=== PATIENT | female | born 1965 | race Caucasian/White ===

== ENCOUNTER 2017-10-07 20:26 | Emergency (ER) | payer MEDICAID ==
[~2017-10-07] VITALS: Ht 160 cm; Wt 57.5 kg
[2017-10-07 20:56] VITALS: BP 136/81
== END 2017-10-07 23:28 | disposition left against medical advice (07) ==
LOC: ER 20:26 → EEVIPCON 20:26 → ER 23:28
DX: R10.2 Pelvic and perineal pain (principal); Z53.21 Procedure and treatment not carried out due to patient leaving prior to being seen by health care provider

== ENCOUNTER 2017-10-09 12:53 | Emergency (ER) | payer MEDICAID ==
[~2017-10-09] VITALS: Ht 160 cm; Wt 63.0 kg
[2017-10-09 13:15] VITALS: BP 129/86
[2017-10-09] MEDS ORDERED: PERM60CR19 TP (13:32)
== END 2017-10-09 14:24 | disposition home or self-care (01) ==
LOC: ER 12:53
DX: L98.9 Disorder of the skin and subcutaneous tissue, unspecified (principal); F17.200 Nicotine dependence, unspecified, uncomplicated; F12.10 Cannabis abuse, uncomplicated
CPT/HCPCS: 99282

== ENCOUNTER 2018-01-02 14:54 | Emergency (ER) | payer MEDICAID ==
[~2018-01-02] VITALS: Ht 160 cm; Wt 67.3 kg
[2018-01-02 14:56] VITALS: BP 148/81
== END 2018-01-02 15:52 | disposition home or self-care (01) ==
LOC: ER 14:55
DX: L98.8 Other specified disorders of the skin and subcutaneous tissue (principal); F12.90 Cannabis use, unspecified, uncomplicated; F17.200 Nicotine dependence, unspecified, uncomplicated
CPT/HCPCS: 99281

== ENCOUNTER 2018-08-05 12:08 | Emergency (ER) | payer MEDICAID ==
[~2018-08-05] VITALS: Ht 160 cm; Wt 59.1 kg
[2018-08-05 12:20] VITALS: BP 157/90
[2018-08-05] MEDS ORDERED: KEN0.1O TP (12:24)
[2018-08-05] MEDS ORDERED: PERM60CR19 TP (12:24)
== END 2018-08-05 12:38 | disposition home or self-care (01) ==
LOC: ER 12:09
DX: B86 Scabies (principal); F12.90 Cannabis use, unspecified, uncomplicated; Z79.899 Other long term (current) drug therapy
CPT/HCPCS: 99283

== ENCOUNTER 2018-10-07 23:04 | Emergency (ER) | payer MEDICAID ==
[~2018-10-07] VITALS: Ht 160 cm; Wt 51.9 kg
[~2018-10-07 23:04] MED LIST: PERM60CR19 TP
[2018-10-08 04:13] VITALS: BP 138/78
[2018-10-08] MEDS ORDERED: CIPR10DR LEFT EAR (04:52)
== END 2018-10-08 05:04 | disposition home or self-care (01) ==
LOC: ER 23:04
DX: J06.9 Acute upper respiratory infection, unspecified (principal); H60.92 Unspecified otitis externa, left ear; F12.90 Cannabis use, unspecified, uncomplicated; Z79.899 Other long term (current) drug therapy
CPT/HCPCS: 99283

== ENCOUNTER 2019-08-13 15:12 | Emergency (ER) | payer MEDICAID ==
[~2019-08-13] VITALS: Ht 160 cm; Wt 61.5 kg
[2019-08-13 15:20] VITALS: BP 141/79
[2019-08-13] MEDS ORDERED: predniSONE 20 mg tablet PO ONE (16:10)
[2019-08-13] MEDS ORDERED: ipratropium/albuterol 3ml nebule NEB ONE (16:10)
[2019-08-13] MEDS ORDERED: PRED20TA PO (16:16)
[2019-08-13] MEDS ORDERED: AMOX-117 PO (16:16)
== END 2019-08-13 17:02 | disposition home or self-care (01) ==
LOC: ER 15:13
DX: J45.901 Unspecified asthma with (acute) exacerbation (principal); J06.9 Acute upper respiratory infection, unspecified; H66.92 Otitis media, unspecified, left ear; F12.90 Cannabis use, unspecified, uncomplicated; F17.200 Nicotine dependence, unspecified, uncomplicated; Z79.899 Other long term (current) drug therapy
CPT/HCPCS: 71045; 94640; 99283; J7512; 94760

== ENCOUNTER 2019-11-23 13:03 | Emergency (ER) | payer MEDICAID ==
[~2019-11-23] VITALS: Ht 160 cm; Wt 61.0 kg
[2019-11-23 14:12] LABS: EOSINOPHILS # (AUTO) 0.1 X10'3 (0-0.9); HEMOGLOBIN 12.9 g/dl (12.0-16.0); LYMPHOCYTES # (AUTO) 1.8 X10'3 (1.1-4.8); MEAN PLATELET VOLUME 6.3 FL (7.4-10.4); MONOCYTES # (AUTO) 0.6 X10'3 (0-0.9)
[2019-11-23 14:13] LABS: BASOPHILS % (AUTO) 0.6 % (0-1); HEMATOCRIT 37.2 % (35.0-45.0); LYMPHOCYTES % (AUTO) 27.4 % (21-51); MEAN CORPUSCULAR HEMOGLOBIN 33.3 PG (27.0-31.0); MEAN CORPUSCULAR HGB CONC 34.6 g/dL (33.0-36.5); MEAN CORPUSCULAR VOLUME 96.1 FL (78-98); MONOCYTES % (AUTO) 9.7 % (2-12); NEUTROPHILS % (AUTO) 61.3 % (42-75); PLATELET COUNT 674 X10'3 (140-440); RED BLOOD COUNT 3.87 X10'6 (4.20-5.60); RED CELL DISTRIBUTION WIDTH 12.7 % (11.5-14.5); WHITE BLOOD COUNT 6.5 X10'3 (4.5-11.0)
[2019-11-23 14:18] LABS: ALANINE AMINOTRANSFERASE 22 U/L (12-78); ALBUMIN 3.5 G/DL (3.4-5.0); ALBUMIN/GLOBULIN RATIO 0.8 (1.1-1.5); ALKALINE PHOSPHATASE 140 IU/L (46-116); ANION GAP 11 (8-16); ASPARTATE AMINO TRANSFERASE 29 U/L (10-37); BILIRUBIN,TOTAL 0.4 MG/DL (0.1-1.0); BLOOD UREA NITROGEN 8 MG/DL (7-18); BUN/CREATININE RATIO 12.5 (6.6-38.0); CALCIUM 8.8 MG/DL (8.5-10.1); CHLORIDE 98 MMOL/L (99-107); CREATININE 0.64 MG/DL (0.40-0.90); GLUCOSE 89 MG/DL (70-104); POTASSIUM 3.8 MMOL/L (3.5-5.1); SODIUM 134 MMOL/L (135-145); TOTAL CARBON DIOXIDE 25.3 MMOL/L (24-32); TOTAL PROTEIN 8.1 G/DL (6.4-8.2); eGFR > 90 ML/MIN
[2019-11-23] MEDS ORDERED: methylPREDNISolone sod succ 125mg/2ml vial IV ONE (14:45)
[2019-11-23] MEDS ORDERED: ketorolac tromethamine 15mg/ml inj. IV ONE (14:45)
[2019-11-23] MEDS ORDERED: levoFLOXACIN-Levaquin 750MG/D5 150 ML IV ONE (14:45)
[2019-11-23] MEDS ORDERED: ipratropium 0.5 MG/2.5ML nebule IH ONE (14:45)
[2019-11-23] MEDS ORDERED: albuterol 2.5 MG/3 ML nebule CONTNEB PRN (14:45)
[2019-11-23] MEDS ORDERED: normal saline 1000ML IV soln IVB ONE (14:45)
[2019-11-23 16:33] VITALS: BP 137/81
[2019-11-23] MEDS ORDERED: LEVO750T21 PO (16:49)
[2019-11-23] MEDS ORDERED: PRED20TA PO (16:49)
[2019-11-23] MEDS ORDERED: HYDROcodone/acetaminophen 5mg/325mg tablet PO ONE (16:50)
== END 2019-11-23 17:40 | disposition home or self-care (01) ==
LOC: ER 13:04
DX: J44.1 Chronic obstructive pulmonary disease with (acute) exacerbation (principal); Z20.828 Contact with and (suspected) exposure to other viral communicable diseases; J18.9 Pneumonia, unspecified organism; Z87.891 Personal history of nicotine dependence; Z79.899 Other long term (current) drug therapy
CPT/HCPCS: 36415; 71045; 80053; 83605; 84145; 84484; 85025; 93005; 94644; 96365; 96375; 99285; J1885; J1956; J2930; J7030; U0003; 94760

== ENCOUNTER 2019-12-20 10:54 | Emergency (ER) | payer MEDICAID ==
[~2019-12-20] VITALS: Ht 160 cm; Wt 61.0 kg
[~2019-12-20 10:54] MED LIST changes: +PRED20TA PO
--- NOTE | 2019-12-20 11:04 | NUR ---
Pt's daughter is Santa Gardner [phone]. She has been taking care of her mother, if we have any questions.
[2019-12-20 11:48] LABS: BASOPHILS # (AUTO) 0.1 X10'3 (0-0.2); BASOPHILS % (AUTO) 0.6 % (0-1); EOSINOPHILS % (AUTO) 0.4 % (0-6); HEMOGLOBIN 13.1 g/dl (12.0-16.0); LYMPHOCYTES # (AUTO) 2.5 X10'3 (1.1-4.8); LYMPHOCYTES % (AUTO) 25.1 % (21-51); MEAN CORPUSCULAR HGB CONC 33.7 g/dL (33.0-36.5); MEAN CORPUSCULAR VOLUME 97.9 FL (78-98); MEAN PLATELET VOLUME 6.7 FL (7.4-10.4); MONOCYTES # (AUTO) 0.9 X10'3 (0-0.9); MONOCYTES % (AUTO) 9.1 % (2-12); NEUTROPHILS # (AUTO) 6.4 X10'3 (1.8-7.7); NEUTROPHILS % (AUTO) 64.8 % (42-75); PLATELET COUNT 591 X10'3 (140-440); RED BLOOD COUNT 3.98 X10'6 (4.20-5.60); RED CELL DISTRIBUTION WIDTH 13.2 % (11.5-14.5); WHITE BLOOD COUNT 9.9 X10'3 (4.5-11.0)
[2019-12-20 12:01] LABS: PARTIAL THROMBOPLASTIN TIME 32 SECONDS (22-32)
--- NOTE | 2019-12-20 12:02 | NUR ---
[facility] is on the phone with the provider to discuss the findings of the x-ray.
[2019-12-20 12:03] LABS: ALANINE AMINOTRANSFERASE 59 U/L (12-78); ALBUMIN/GLOBULIN RATIO 0.6 (1.1-1.5); ALKALINE PHOSPHATASE 121 IU/L (46-116); ANION GAP 13 (8-16); ASPARTATE AMINO TRANSFERASE 59 U/L (10-37); BILIRUBIN,TOTAL 0.4 MG/DL (0.1-1.0); BLOOD UREA NITROGEN 17 MG/DL (7-18); BUN/CREATININE RATIO 21.3 (6.6-38.0); CALCIUM 9.1 MG/DL (8.5-10.1); CHLORIDE 101 MMOL/L (99-107); GLUCOSE 108 MG/DL (70-104); SODIUM 137 MMOL/L (135-145); TOTAL CARBON DIOXIDE 23.2 MMOL/L (24-32); TOTAL PROTEIN 7.7 G/DL (6.4-8.2); eGFR 74 ML/MIN
[2019-12-20] MEDS ORDERED: albuterol 2.5 MG/3 ML nebule NEB ONE (12:05)
[2019-12-20] MEDS ORDERED: normal saline 1000ML IV soln IVB ONE ×2 (12:25→17:00)
[2019-12-20] MEDS ORDERED: iohexol 300mg/ml 100ml inj. ONE (13:32)
[2019-12-20 14:18] LABS: CLARITY,URINE CLOUDY (Clear); COLOR,URINE YELLOW (Yellow); GLUCOSE, URINE NEGATIVE (Neg); KETONES,URINE NEGATIVE (Neg); LEUKOCYTE ESTERASE ,URINE NEGATIVE (Neg); NITRITES, URINE NEGATIVE (Neg); OCCULT BLOOD,URINE NEGATIVE (Neg); PH,URINE 5.5 (4.8-8.0); PROTEIN,URINE 30 mg/dl (Neg); UROBILINOGEN,URINE 0.2 E.U/dL (0.2-1.0)
[2019-12-20] MEDS ORDERED: morphine 2 MG/ML inj. syringe IV ONE (14:20)
[2019-12-20 14:26] LABS: UA COLLECTION TYPE CLN CATCH MIDSTREAM
[2019-12-20 14:27] LABS: SQUAMOUS EPITHELIAL CELL,UR MODERATE /LPF (FEW)
[2019-12-20 14:28] LABS: MUCUS STRANDS MANY /LPF (Neg); TRANSITIONAL EPI CELLS,URINE FEW /HPF
[2019-12-20 14:29] LABS: WBC CASTS 0-3 /LPF (NEGATIVE)
[2019-12-20 14:31] LABS: BACTERIA,URINE NONE SEEN /HPF (Neg); RBC,URINE 0-2 /HPF (0-2); RENAL CELLS, URINE MODERATE /HPF
[2019-12-20] MEDS ORDERED: LIDOcaine Viscous 15ml cup MM STA (14:31)
[2019-12-20] MEDS ORDERED: famotidine 20mg tablet PO ONE (14:35)
[2019-12-20] MEDS ORDERED: mag hydrox/Alum hydrox/simeth 30ml oral suspension PO ONE (14:35)
[2019-12-20] MEDS ORDERED: ASPI-1265 PO (16:50)
[2019-12-20] MEDS ORDERED: ESCI20TA45 PO (16:50)
[2019-12-20] MEDS ORDERED: OXCA600T9 PO (16:50)
[2019-12-20] MEDS ORDERED: MULT-1219 PO (16:50)
[2019-12-20] MEDS ORDERED: PHEN97.22 PO (16:50)
[2019-12-20] MEDS ORDERED: OMEP-50 PO (16:50)
[2019-12-20] MEDS ORDERED: TIOT4MIS5 IH (16:50)
[2019-12-20] MEDS ORDERED: SIMV10TA98 PO (16:50)
[2019-12-20] MEDS ORDERED: TRAZ-251 PO (16:50)
[2019-12-20] MEDS ORDERED: ALBU2.5V10 NEB (16:50)
[2019-12-20] MEDS ORDERED: HYDR-3965 PO (19:16)
[2019-12-20] MEDS ORDERED: DOCU100C40 PO (19:17)
[2019-12-20] MEDS ORDERED: LORazepam 1 MG tablet PO ONE (19:40)
[2019-12-20 20:15] VITALS: BP 134/97
== END 2019-12-20 19:50 | disposition home or self-care (01) ==
LOC: ER 10:54
DX: I31.3 Pericardial effusion (noninflammatory) (principal); C80.1 Malignant (primary) neoplasm, unspecified; J44.9 Chronic obstructive pulmonary disease, unspecified; Z79.82 Long term (current) use of aspirin; Z79.899 Other long term (current) drug therapy
CPT/HCPCS: 36415; 71045; 71260; 74177; 76700; 80053; 81001; 83605; 84145; 85025; 85610; 85730; 87040; 87088; 93005; 94640; 96361; 96374; 99285; J2270; J7030; Q9967; 94760